=== PATIENT | male | born 1990 | race African-American/Black ===

== ENCOUNTER 2022-10-02 04:01 | Emergency (ER) | payer OTHER ==
[~2022-10-02] VITALS: Ht 180.3 cm; Wt 113.4 kg
== END 2022-10-02 06:11 | disposition home or self-care (01) ==
LOC: ED 04:01
DX: S43.401A Unspecified sprain of right shoulder joint, initial encounter (principal); X50.0XXA Overexertion from strenuous movement or load, initial encounter; Y93.89 Activity, other specified; Y92.89 Other specified places as the place of occurrence of the external cause; Y99.0 Civilian activity done for income or pay

== ENCOUNTER 2022-10-16 03:13 | Emergency (ER) | payer OTHER ==
[~2022-10-16] VITALS: Ht 180.3 cm; Wt 113.4 kg
[2022-10-16] MEDS ORDERED: AMOX-CLAV 875-1 EACH PO (03:35)
== END 2022-10-16 03:50 | disposition home or self-care (01) ==
LOC: ED 03:13
DX: J02.0 Streptococcal pharyngitis (principal); Z87.891 Personal history of nicotine dependence

== ENCOUNTER 2023-04-30 03:47 | Emergency (ER) | payer OTHER ==
[~2023-04-30] VITALS: Ht 182.8 cm; Wt 122.5 kg
[~2023-04-30 03:47] MED LIST: AMOX-CLAV 875-1 EACH PO
[2023-04-30] MEDS ORDERED: AMOX-CLAV 875-1 EACH PO (04:06)
[2023-04-30] MEDS ORDERED: CLINDAMYCIN HC300 MG PO (04:06)
== END 2023-04-30 04:46 | disposition home or self-care (01) ==
LOC: ED 03:47
DX: I88.9 Nonspecific lymphadenitis, unspecified (principal); I10 Essential (primary) hypertension